=== PATIENT | female | born 1990 | race Caucasian/White ===

== ENCOUNTER 2018-08-31 15:55 | Emergency (ER) | payer OTHER ==
[~2018-08-31] VITALS: Ht 154.9 cm; Wt 114.3 kg
[2018-08-31] MEDS ORDERED: FOLIC ACID1 MG (16:44)
[2018-08-31] MEDS ORDERED: PRENATAL 19 CH1 EAC1 (16:45)
== END 2018-09-01 16:20 | disposition home or self-care (01) ==
LOC: ER 15:55 → EDBD 16:02 → ER 16:02
DX: O03.9 Complete or unspecified spontaneous abortion without complication (principal)